=== PATIENT | male | born 1995 | race Hispanic/Latino ===

== ENCOUNTER 2022-11-05 21:25 | Emergency (ER) | payer SELFPAY ==
[2022-11-05] MEDS ORDERED: ULTRAM50 MG PO (22:51)
[2022-11-05] MEDS ORDERED: AMOXICILLIN500 MG PO (22:51)
[2022-11-05 23:36] VITALS: BP 126/72
== END 2022-11-05 23:42 | disposition home or self-care (01) | DRG 159 ==
LOC: ED 21:25
DX: K04.7 Periapical abscess without sinus (principal); S02.5XXA Fracture of tooth (traumatic), initial encounter for closed fracture; X58.XXXA Exposure to other specified factors, initial encounter